=== PATIENT | female | born 1960 | race Caucasian/White ===

== ENCOUNTER 2016-12-12 16:01 | Observation (INO) | payer OTHER, MEDICARE ==
[~2016-12-12] VITALS: Ht 157.5 cm; Wt 53.1 kg
[2016-12-12 18:18] LABS: HEMOGLOBIN 16.5 gm/dl (12.3-15.3); RED BLOOD COUNT 5.41 M/UL (4.00-5.10)
[2016-12-12 18:39] LABS: BUN/CREATININE RATIO 21 (0-10)
[2016-12-13] MEDS ORDERED: ATENOLOL50 MG PO (04:43)
[2016-12-13] MEDS ORDERED: LEVOTHYROXINE25 MCG PO (04:43)
[2016-12-13] MEDS ORDERED: SIMVASTATIN10 MG PO (04:45)
[2016-12-13] MEDS ORDERED: TOLTERODINE TART4 MG PO (04:47)
[2016-12-14 13:00] LABS: HEMOGLOBIN 14.1 gm/dl (12.3-15.3); RED BLOOD COUNT 4.67 M/UL (4.00-5.10); WHITE BLOOD COUNT 20.4 K/UL (4.5-11.0)
[2016-12-14 13:17] LABS: BUN/CREATININE RATIO 31 (0-10)
[2016-12-15] MEDS ORDERED: LEVAQUIN750 MG PO (16:29)
[2016-12-15] MEDS ORDERED: PREDNISONE10 M1 PO (16:29)
[2016-12-15] MEDS ORDERED: IPRAT-ALBUT 0.5-3 ML INH (18:30)
== END 2016-12-15 20:15 | disposition home or self-care (01) ==
LOC: ER1 16:01 → ZEROF 22:40 → M/S 22:40
PROVIDERS: Emergency Medicine; Internal Medicine; ADMIT Internal Medicine
DX: J96.01 Acute respiratory failure with hypoxia (principal); J44.1 Chronic obstructive pulmonary disease with (acute) exacerbation; G47.00 Insomnia, unspecified; I10 Essential (primary) hypertension; E03.9 Hypothyroidism, unspecified; E78.5 Hyperlipidemia, unspecified; Z95.0 Presence of cardiac pacemaker; Z88.2 Allergy status to sulfonamides; Z90.49 Acquired absence of other specified parts of digestive tract; Z79.899 Other long term (current) drug therapy; Z87.891 Personal history of nicotine dependence
CPT/HCPCS: 36415; 36600; 71020; 71250; 80048; 80053; 82550; 82553; 82803; 83874; 84484; 85025; 85379; 87070; 87081; 87205; 87880; 93005; 94640; 94664; 96372; 96374; 96376; 99284; G0378; J1650; J2920; J2930

== ENCOUNTER → 2020-10-24 | Outpatient (CLI) | payer MEDICARE ==
[~2020-10-24] MED LIST: ATENOLOL50 MG PO; IPRAT-ALBUT 0.5-3 ML INH; LEVAQUIN750 MG PO; LEVOTHYROXINE25 MCG PO; MACROBID 100 M100 MG PO; PREDNISONE10 M1 PO; SIMVASTATIN10 MG PO; TOLTERODINE TART4 MG PO
[2020-10-24 15:34] LABS: BUN/CREATININE RATIO 18 (0-10)
== END ==
LOC: LAB 14:29
PROVIDERS: Internal Medicine Nephrology
DX: N18.30 Chronic kidney disease, stage 3 unspecified (principal); E87.6 Hypokalemia
CPT/HCPCS: 36415; 80053; 82570; 83735; 84156

== ENCOUNTER → 2021-01-24 | Outpatient (CLI) | payer MEDICARE | LOC: LAB 09:50 | PROVIDERS: Internal Medicine Nephrology | DX: N18.30 Chronic kidney disease, stage 3 unspecified (principal); E87.6 Hypokalemia | CPT/HCPCS: 36415; 80053; 82570; 83735; 84156 ==

== ENCOUNTER → 2021-07-24 | Outpatient (CLI) | payer MEDICARE ==
[2021-07-25 07:10] LABS: A/G RATIO 1.8 (1.2-2.2); ALKALINE PHOSPHATASE, S 76 IU/L (44-121); ALT (SGPT) 14 IU/L (0-32); AST (SGOT) 20 IU/L (0-40); BILIRUBIN, TOTAL 0.4 mg/dL (0.0-1.2); BUN 13 mg/dL (8-27); BUN/CREATININE RATIO 13 (12-28); CALCIUM, SERUM 10.2 mg/dL (8.7-10.3); CARBON DIOXIDE, TOTAL 25 mmol/L (20-29); CHLORIDE, SERUM 99 mmol/L (96-106); CREATININE, SERUM 1.03 mg/dL (0.57-1.00); EGFR IF AFRICN AM 68 (>59); EGFR IF NONAFRICN AM 59 (>59); GLOBULIN, TOTAL 2.7 g/dL (1.5-4.5); GLUCOSE, SERUM 97 mg/dL (65-99); POTASSIUM, SERUM 4.3 mmol/L (3.5-5.2); PROTEIN, TOTAL, SERUM 7.5 g/dL (6.0-8.5); SODIUM, SERUM 141 mmol/L (134-144)
[2021-07-25 08:13] LABS: CHOLESTEROL, TOTAL 169 mg/dL (100-199); HDL CHOLESTEROL 70 mg/dL (>39); LDL CHOLESTEROL CALC 85 mg/dL (0-99); LDL/HDL RATIO 1.2 ratio (0.0-3.2); T. CHOL/HDL RATIO 2.4 ratio (0.0-4.4); TRIGLYCERIDES 76 mg/dL (0-149)
== END ==
LOC: LAB 09:02
PROVIDERS: Internal Medicine Nephrology
DX: E03.9 Hypothyroidism, unspecified (principal); E78.5 Hyperlipidemia, unspecified; E87.6 Hypokalemia; N18.30 Chronic kidney disease, stage 3 unspecified
CPT/HCPCS: 36415; 80053; 80061; 82570; 83735; 84156; 84443

== ENCOUNTER → 2021-12-12 | Outpatient (CLI) | payer MEDICARE ==
[2021-12-12 10:17] LABS: BUN/CREATININE RATIO 15 (0-10)
== END ==
LOC: LAB 09:26
PROVIDERS: Internal Medicine Nephrology
DX: N18.30 Chronic kidney disease, stage 3 unspecified (principal)
CPT/HCPCS: 36415; 80053; 82570; 83735; 84156

== ENCOUNTER → 2022-02-05 | Outpatient (CLI) | payer MEDICARE ==
[2022-02-05 10:54] LABS: BUN/CREATININE RATIO 15 (0-10)
== END ==
LOC: LAB 09:46
PROVIDERS: Internal Medicine Nephrology
DX: N18.30 Chronic kidney disease, stage 3 unspecified (principal); E87.6 Hypokalemia
CPT/HCPCS: 36415; 80053; 82570; 83735; 84156